=== PATIENT | male | born 1950 | race Asian ===

== ENCOUNTER → 2024-05-23 | Outpatient (CLI) | payer OTHER, SELFPAY ==
[2024-05-23 09:28] LABS: Collection Type, Urine Clean Catch
[2024-05-23 10:11] LABS: Basophils % (Auto) 1 % (0-2.5); Eosinophils # (Auto) 0.2 Thou/mm3 (0.0-0.5); Eosinophils % (Auto) 3 % (0-10); Hemoglobin 12.7 g/dL (13.5-16.0); Immature Granulocytes % (Auto) 0 % (0-0); Immature Granulocytes Auto 0.01 Thou/mm3 (0.00-0.00); Lymphocytes # (Auto) 2.4 Thou/mm3 (1.0-4.8); Lymphocytes % (Auto) 40 % (10-50); Mean Corpuscular Hemoglobin 20.9 pg (25.0-35.0); Mean Corpuscular Volume 67 fL (80-100); Monocytes # (Auto) 0.4 Thou/mm3 (0.0-0.8); Monocytes % (Auto) 7 % (0-12); Neutrophils # (Auto) 3.1 Thou/mm3 (1.8-7.7); Neutrophils % (Auto) 50 % (37-80); Nucleated Red Blood Cell % 0 /100 WBC (0); Platelet Count 276 Thou/mm3 (140-440); RDW Standard Deviation 37.5 fL (35.1-43.9); Red Blood Count 6.08 Miln/mm3 (4.50-5.90); White Blood Count 6.2 Thou/mm3 (3.8-10.6)
[2024-05-23 10:24] LABS: Bilirubin,Urine Negative (Negative); Blood,Urine Negative (Negative); Clarity,Urine Clear (Clear/Hazy); Color,Urine Lt-Yellow (Lt Yel-Yel); Glucose, Urine Negative (Negative); Ketones,Urine Negative (Negative); Leukocyte Esterase,Urine Negative (Negative); Nitrite,Urine Negative (Negative); Protein,Urine Negative (Neg - Trace); RBC,Urine 1 /hpf (0-3); Specific Gravity,Urine 1.016 (1.001-1.035); Squamous Epithelial Cell,Urine < 1 /hpf (0-5); Urobilinogen,Urine Negative mg/dL (0.0-1.0); WBC,Urine 1 /hpf (0-5)
[2024-05-23 10:29] LABS: Alanine Aminotransferase 20 U/L (10-49); Albumin, Serum 4.2 gm/dL (3.4-4.8); Albumin/Globulin Ratio 1.3 (1.2-2.2); Alkaline Phosphatase 78 U/L (46-116); Anion Gap 7 (7-16); Aspartate Amino Transferase 22 U/L (0-34); BUN/Creatinine Ratio 14 Ratio (12-20); Bilirubin,Total 0.8 mg/dL (0.3-1.2); Blood Urea Nitrogen 14 mg/dL (9-23); Calcium 9.5 mg/dL (8.3-10.6); Calcium (Corrected) 9.5 mg/dL (8.5-10.1); Carbon Dioxide 28.9 mMol/L (20.0-31.0); Cardiac Risk Estimate 4.6 RATIO (4.0-6.7); Chloride 108 mMol/L (98-107); Cholesterol 254 mg/dL (132-200); Globulin 3.2 gm/dL (2.3-3.5); Glucose 104 mg/dL (74-106); HDL Cholesterol 55 mg/dL (40-60); LDL Cholesterol,Calculated 165 mg/dL (0-130); Osmolality,Calculated 287 (275-295); Potassium 4.3 mMol/L (3.4-5.1); Sodium 144 mMol/L (136-145); Thyroid Stimulating Hormone 0.64 uIU/mL (0.55-4.78); Total Protein 7.4 gm/dL (5.7-8.2); Triglycerides 168 mg/dL (30-150); eGFR > 60 See Note
[2024-05-23 12:26] LABS: Path Review Blood Smear Sent to Pathologist
== END | disposition home or self-care (01) ==
LOC: COPL 09:08
PROVIDERS: PCP Family Medicine; Referring Provider Family Medicine; Visit Provider Family Medicine
DX: Z00.00 Encounter for general adult medical examination without abnormal findings (principal); E78.2 Mixed hyperlipidemia; E04.1 Nontoxic single thyroid nodule; E79.0 Hyperuricemia without signs of inflammatory arthritis and tophaceous disease
CPT/HCPCS: 36415; 80053; 80061; 81001; 84443; 85025

== ENCOUNTER 2024-07-01 09:55 | Day surgery (SDC) | payer OTHER, SELFPAY ==
[2024-06-26 06:59] VITALS: BMI 28.4
--- NOTE | 2024-06-26 07:00 | EKG_ITS ---
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
[2024-06-26 07:40] LABS: Collection Type, Urine Clean Catch
[2024-06-26 08:29] LABS: Alanine Aminotransferase 21 U/L (10-49); Albumin, Serum 4.1 gm/dL (3.4-4.8); Albumin/Globulin Ratio 1.2 (1.2-2.2); Alkaline Phosphatase 91 U/L (46-116); Anion Gap 7 (7-16); Aspartate Amino Transferase 23 U/L (0-34); BUN/Creatinine Ratio 16 Ratio (12-20); Bilirubin,Total 0.6 mg/dL (0.3-1.2); Blood Urea Nitrogen 16 mg/dL (9-23); Carbon Dioxide 28.6 mMol/L (20.0-31.0); Chloride 109 mMol/L (98-107); Estimated Creatinine Clearance 59.2 mL/min (>60); Globulin 3.4 gm/dL (2.3-3.5); Glucose 129 mg/dL (74-106); Osmolality,Calculated 291 (275-295); Potassium 4.2 mMol/L (3.4-5.1); Sodium 145 mMol/L (136-145); Total Protein 7.5 gm/dL (5.7-8.2); eGFR > 60 See Note
[2024-06-26 08:34] LABS: Basophils % (Auto) 0 % (0-2.5); Eosinophils # (Auto) 0.1 Thou/mm3 (0.0-0.5); Eosinophils % (Auto) 2 % (0-10); Hematocrit 41.1 % (41.0-53.0); Hemoglobin 12.8 g/dL (13.5-16.0); Immature Granulocytes % (Auto) 0 % (0-0); Immature Granulocytes Auto 0.01 Thou/mm3 (0.00-0.00); Lymphocytes # (Auto) 2.2 Thou/mm3 (1.0-4.8); Lymphocytes % (Auto) 32 % (10-50); Mean Corpuscular HGB Conc 31.1 g/dl (31.0-37.0); Mean Corpuscular Hemoglobin 20.7 pg (25.0-35.0); Mean Corpuscular Volume 67 fL (80-100); Monocytes # (Auto) 0.5 Thou/mm3 (0.0-0.8); Monocytes % (Auto) 8 % (0-12); Neutrophils # (Auto) 3.9 Thou/mm3 (1.8-7.7); Neutrophils % (Auto) 58 % (37-80); Nucleated Red Blood Cell % 0 /100 WBC (0); Platelet Count 280 Thou/mm3 (140-440); RDW Standard Deviation 36.9 fL (35.1-43.9); Red Blood Count 6.18 Miln/mm3 (4.50-5.90); White Blood Count 6.9 Thou/mm3 (3.8-10.6)
[2024-06-26 08:36] LABS: Bilirubin,Urine Negative (Negative); Blood,Urine Negative (Negative); Clarity,Urine Clear (Clear/Hazy); Color,Urine Lt-Yellow (Lt Yel-Yel); Glucose, Urine Negative (Negative); Ketones,Urine Negative (Negative); Leukocyte Esterase,Urine Negative (Negative); Nitrite,Urine Negative (Negative); Protein,Urine Negative (Neg - Trace); RBC,Urine 2 /hpf (0-3); Specific Gravity,Urine 1.018 (1.001-1.035); Squamous Epithelial Cell,Urine < 1 /hpf (0-5); Urobilinogen,Urine Negative mg/dL (0.0-1.0); WBC,Urine < 1 /hpf (0-5)
--- NOTE | 2024-06-30 14:14 | SUR.PREOP ---
Voice message left for pt to come in at 1030 tomorrow.
--- NOTE | 2024-07-01 07:49 | ESHP_ITS ---
RE: LESLI BROWN : 1950 DATE OF ADMISSION: 06/30/2024 HISTORY OF PRESENT ILLNESS: The patient is a 74-year-old male with an elevated prostatic specific antigen of 8.75. He has nocturia three to four times. He has fair urinary stream. There is no history of gross hematuria or no history of urinary burning. 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 SOCIAL HISTORY: The patient has one child. ALLERGIES: NONE KNOWN. PAST MEDICAL HISTORY: There is no history of diabetes mellitus. No history of hypertension. HOME MEDICATIONS: The patient takes, 1. Tamsulosin 0.4 mg every day. 2. Allopurinol. 3. Finasteride 5 mg. PHYSICAL EXAMINATION: HEENT: Normal. Neck: Supple. Lungs: Clear. Cardiovascular: Heart sounds are normal. Abdomen: Soft without any organomegaly. No guarding. No rigidity. Extremities: Normal. Genitourinary: Phallus is normal. Testes are down in the scrotum. Rectal: Moderately enlarged prostate with small left prostatic lobe nodule and firmness. IMPRESSION: 1. Prostatism. 2. Prostatic obstruction. 3. Elevated PSA of 8.75. PLAN: Cystoscopy and transrectal prostatic ultrasound with ultrasound-guided prostatic needle biopsy. Planned procedure, risks and complications have been discussed with the patient. The patient has understood them and agreed to proceed. Thank you very much for your kind referral and for allowing me to see this patient. cc: Sekou Horton MD DT: 17:18:36 TT: 18:12:00 Ref: [id number] - TID: [id number]
[2024-07-01 10:33] VITALS: BP 137/73; PULSE 63; RESP 16; TEMP 36.9; O2SAT 96; BMI 28.7
[2024-07-01 13:34] VITALS: BP 146/84; PULSE 73; RESP 16; TEMP 36.3; O2SAT 97
[2024-07-01 13:39] VITALS: BP 138/81; PULSE 71; RESP 18; O2SAT 95
[2024-07-01 13:44] VITALS: BP 119/70; PULSE 69; RESP 18; O2SAT 96
[2024-07-01 13:49] VITALS: BP 147/79; PULSE 77; RESP 19; O2SAT 95
[2024-07-01 14:04] VITALS: BP 122/68; PULSE 69; RESP 17; TEMP 36.4; O2SAT 95
--- NOTE | 2024-07-01 17:55 | ESOP_ITS ---
RE: LESLI BROWN : 1950 DATE OF OPERATION: 07/01/2024 PREOPERATIVE DIAGNOSES: Prostatism, prostatic obstruction, and elevated PSA of 8.75. POSTOPERATIVE DIAGNOSES: Prostatism, prostatic obstruction, and elevated PSA of 8.75. PROCEDURES PERFORMED: Cystoscopy, urethral dilatation, and transrectal prostatic ultrasound with ultrasound-guided prostatic needle biopsy. ANESTHESIA: Monitored anesthesia by Dr. Whittington. INDICATION: The patient is a 74-year-old gentleman with elevated PSA of 8.75. He has nocturia 3-4 times. Rectally, he has a moderately enlarged prostate with mild firmness in the left prostatic lobe. He is now scheduled to have cystoscopy and transrectal prostatic ultrasound with ultrasound-guided prostatic needle biopsy. Planned procedure, risks, and complications have been discussed with the patient. The patient understood them and agreed to proceed. DESCRIPTION OF PROCEDURE: After the patient was brought to the operating table, under adequate monitored anesthesia by Dr. Whittington, patient was placed in dorsal lithotomy position. Parts were prepped and draped in the usual fashion. Cystoscopy was then carried out, which revealed adequate urethral meatus, normal-appearing urethra, and moderately enlarged prostate, which was bilobed. Residual urine is 2 ounces, yellow and clear. There are no intravesical stones or tumors. Ureteral orifices are found to be normal in position and appearance. Scope was withdrawn. Urethra was dilated. The patient was then turned in left lateral position. Transrectal prostatic ultrasound was carried out. Biopsies were obtained from both lobes using biopsy needle in all about 10-11. Biopsies were obtained from the prostate. Prostatic volume was measured at 19.4 mL. The patient tolerated the entire procedure well and left the room in good condition. PLAN: We will await the biopsy report. Thank you very much for your kind referral and for allowing me to participate in the management of this patient. cc: Sekou Horton MD DT: 13:41:04 TT: 17:54:00 Ref: [id number] - TID: [id number]
== END 2024-07-01 14:14 | disposition home or self-care (01) ==
PROVIDERS: Anesthesiology; PCP Family Medicine; Referring Provider Surgery; Visit Provider Surgery
PROC: (CPT 55700; principal; 2024-07-01 12:30)
PROC: 0TJB8ZZ Inspection of Bladder, Via Natural or Artificial Opening Endoscopic (ICD-10-PCS; CPT 52000; 2024-07-01 12:30)
DX: C61 Malignant neoplasm of prostate (principal); N40.1 Benign prostatic hyperplasia with lower urinary tract symptoms; R97.20 Elevated prostate specific antigen [PSA]; Z01.810 Encounter for preprocedural cardiovascular examination
CPT/HCPCS: 52281; 55700; 36415; 76942; 80053; 81001; 85025; 87086; 93005; A4217; A4649; J0694; J2250; J2704; J3010

== ENCOUNTER → 2024-08-25 | Outpatient (CLI) | payer OTHER, SELFPAY | END | disposition home or self-care (01) | PROVIDERS: PCP Family Medicine; Referring Provider Family Medicine; Visit Provider Family Medicine | DX: E78.2 Mixed hyperlipidemia (principal); C61 Malignant neoplasm of prostate; D64.9 Anemia, unspecified; E79.0 Hyperuricemia without signs of inflammatory arthritis and tophaceous disease; R73.01 Impaired fasting glucose | CPT/HCPCS: 80053; 80061; 83036; 84550; 85025 ==

== ENCOUNTER → 2024-08-26 | Outpatient (CLI) | payer OTHER, SELFPAY ==
[2024-08-26 08:52] LABS: Basophils % (Auto) 1 % (0-2.5); Eosinophils # (Auto) 0.2 Thou/mm3 (0.0-0.5); Eosinophils % (Auto) 3 % (0-10); Hematocrit 38.7 % (41.0-53.0); Hemoglobin 12.5 g/dL (13.5-16.0); Immature Granulocytes % (Auto) 0 % (0-0); Immature Granulocytes Auto 0.01 Thou/mm3 (0.00-0.00); Lymphocytes # (Auto) 2.9 Thou/mm3 (1.0-4.8); Lymphocytes % (Auto) 43 % (10-50); Mean Corpuscular HGB Conc 32.3 g/dl (31.0-37.0); Mean Corpuscular Hemoglobin 21.3 pg (25.0-35.0); Mean Corpuscular Volume 66 fL (80-100); Monocytes # (Auto) 0.5 Thou/mm3 (0.0-0.8); Monocytes % (Auto) 7 % (0-12); Neutrophils # (Auto) 3.1 Thou/mm3 (1.8-7.7); Neutrophils % (Auto) 46 % (37-80); Nucleated Red Blood Cell % 0 /100 WBC (0); Platelet Count 269 Thou/mm3 (140-440); RDW Standard Deviation 37.2 fL (35.1-43.9); Red Blood Count 5.88 Miln/mm3 (4.50-5.90); White Blood Count 6.7 Thou/mm3 (3.8-10.6)
[2024-08-26 09:38] LABS: Glucose Estimated Average 108 mg/dL (80-131); Hemoglobin A1C 5.4 % Hgb (4.8-6.0)
[2024-08-26 09:52] LABS: Alanine Aminotransferase 14 U/L (10-49); Albumin, Serum 4.2 gm/dL (3.4-4.8); Albumin/Globulin Ratio 1.4 (1.2-2.2); Alkaline Phosphatase 75 U/L (46-116); Anion Gap 12 (7-16); Aspartate Amino Transferase 19 U/L (0-34); BUN/Creatinine Ratio 14 Ratio (12-20); Blood Urea Nitrogen 14 mg/dL (9-23); Calcium 8.6 mg/dL (8.3-10.6); Calcium (Corrected) 8.6 mg/dL (8.5-10.1); Carbon Dioxide 27.3 mMol/L (20.0-31.0); Cardiac Risk Estimate 4.4 RATIO (4.0-6.7); Chloride 109 mMol/L (98-107); Cholesterol 219 mg/dL (132-200); Glucose 103 mg/dL (74-106); HDL Cholesterol 50 mg/dL (40-60); LDL Cholesterol,Calculated 143 mg/dL (0-130); Osmolality,Calculated 294 (275-295); Sodium 148 mMol/L (136-145); Total Protein 7.2 gm/dL (5.7-8.2); Triglycerides 130 mg/dL (30-150); Uric Acid 7.7 mg/dL (3.7-9.2); eGFR > 60 See Note
== END | disposition home or self-care (01) ==
LOC: COPL 07:23
PROVIDERS: PCP Family Medicine; Referring Provider Family Medicine; Visit Provider Family Medicine
DX: C61 Malignant neoplasm of prostate (principal); D64.9 Anemia, unspecified; E78.2 Mixed hyperlipidemia; E79.0 Hyperuricemia without signs of inflammatory arthritis and tophaceous disease; R73.01 Impaired fasting glucose
CPT/HCPCS: 36415; 80053; 80061; 83036; 84550; 85025

== ENCOUNTER → 2024-10-14 | Outpatient (CLI) | payer OTHER, SELFPAY ==
[2024-10-14 09:33] LABS: Collection Type, Urine Clean Catch; Squamous Epithelial Cell,Urine 0 /hpf (0-5)
[2024-10-14 10:06] LABS: Basophils # (Auto) 0.0 Thou/mm3 (0.0-0.2); Basophils % (Auto) 1 % (0-2.5); Eosinophils # (Auto) 0.2 Thou/mm3 (0.0-0.5); Eosinophils % (Auto) 3 % (0-10); Hematocrit 39.0 % (41.0-53.0); Hemoglobin 12.3 g/dL (13.5-16.0); Immature Granulocytes Auto 0.01 Thou/mm3 (0.00-0.00); Lymphocytes # (Auto) 2.5 Thou/mm3 (1.0-4.8); Lymphocytes % (Auto) 39 % (10-50); Mean Corpuscular HGB Conc 31.5 g/dl (31.0-37.0); Mean Corpuscular Hemoglobin 21.2 pg (25.0-35.0); Mean Corpuscular Volume 67 fL (80-100); Monocytes # (Auto) 0.4 Thou/mm3 (0.0-0.8); Monocytes % (Auto) 7 % (0-12); Neutrophils # (Auto) 3.2 Thou/mm3 (1.8-7.7); Neutrophils % (Auto) 50 % (37-80); Nucleated Red Blood Cell # 0.00 Thou/mm3 (0.00-0.00); Nucleated Red Blood Cell % 0 /100 WBC (0); Platelet Count 257 Thou/mm3 (140-440); RDW Standard Deviation 37.0 fL (35.1-43.9); Red Blood Count 5.81 Miln/mm3 (4.50-5.90); White Blood Count 6.4 Thou/mm3 (3.8-10.6)
[2024-10-14 10:14] LABS: Bilirubin,Urine Negative (Negative); Blood,Urine Negative (Negative); Clarity,Urine Clear (Clear/Hazy); Color,Urine Yellow (Lt Yel-Yel); Culture Indicated,Urine Not Indicated; Glucose, Urine Negative (Negative); Ketones,Urine Negative (Negative); Leukocyte Esterase,Urine Negative (Negative); Nitrite,Urine Negative (Negative); PH,Urine 6.0 (5.0-7.0); Protein,Urine Negative (Neg - Trace); RBC,Urine 2 /hpf (0-3); Specific Gravity,Urine 1.024 (1.001-1.035); Urobilinogen,Urine Negative mg/dL (0.0-1.0); WBC,Urine < 1 /hpf (0-5)
[2024-10-14 10:26] LABS: Alanine Aminotransferase 18 U/L (10-49); Albumin, Serum 4.2 gm/dL (3.4-4.8); Albumin/Globulin Ratio 1.3 (1.2-2.2); Alkaline Phosphatase 65 U/L (46-116); Anion Gap 10 (7-16); Aspartate Amino Transferase 22 U/L (0-34); BUN/Creatinine Ratio 10 Ratio (12-20); Bilirubin,Total 0.9 mg/dL (0.3-1.2); Blood Urea Nitrogen 10 mg/dL (9-23); Calcium 9.1 mg/dL (8.3-10.6); Calcium (Corrected) 9.1 mg/dL (8.5-10.1); Carbon Dioxide 28.4 mMol/L (20.0-31.0); Cardiac Risk Estimate 3.1 RATIO (4.0-6.7); Chloride 108 mMol/L (98-107); Cholesterol 147 mg/dL (132-200); Creatinine (Component) 1.0 mg/dL (0.6-1.3); Globulin 3.2 gm/dL (2.3-3.5); Glucose 105 mg/dL (74-106); HDL Cholesterol 48 mg/dL (40-60); LDL Cholesterol,Calculated 71 mg/dL (0-130); Osmolality,Calculated 289 (275-295); Potassium 4.3 mMol/L (3.4-5.1); Sodium 146 mMol/L (136-145); Thyroid Stimulating Hormone 0.19 uIU/mL (0.55-4.78); Total Protein 7.4 gm/dL (5.7-8.2); Triglycerides 138 mg/dL (30-150); eGFR > 60 See Note
[2024-10-14 10:29] LABS: Prostate Specific Antigen 2.09 ng/mL (0-4.00)
== END | disposition home or self-care (01) ==
LOC: COPL 08:42
PROVIDERS: PCP Family Medicine; Referring Provider Family Medicine; Visit Provider Family Medicine
DX: Z00.00 Encounter for general adult medical examination without abnormal findings (principal); E78.2 Mixed hyperlipidemia; R97.20 Elevated prostate specific antigen [PSA]; E04.1 Nontoxic single thyroid nodule
CPT/HCPCS: 36415; 80053; 80061; 81001; 84153; 84443; 85025; 87040

== ENCOUNTER → 2024-11-10 | Outpatient (CLI) | payer OTHER, SELFPAY ==
[2024-11-10 09:20] LABS: OBS Performed By LAB; OBS QC OK? Yes
[2024-11-10 13:44] LABS: OBS Developer Lot # 551749; Occult Blood, Stool Negative (Negative); Occult Blood, Stool #2 Negative (Negative); Occult Blood, Stool #3 Negative (Negative)
== END | disposition home or self-care (01) ==
LOC: SLDO 08:42
PROVIDERS: Referring Provider Family Medicine; Visit Provider Family Medicine
DX: Z00.00 Encounter for general adult medical examination without abnormal findings (principal); E78.2 Mixed hyperlipidemia; R97.20 Elevated prostate specific antigen [PSA]; E04.1 Nontoxic single thyroid nodule
CPT/HCPCS: 82270

== ENCOUNTER → 2024-12-22 | Outpatient (CLI) | payer OTHER, SELFPAY ==
[2024-12-22 10:35] LABS: Free T4 (Free Thyroxine) 1.07 ng/dL (0.89-1.76); Thyroid Stimulating Hormone 0.57 uIU/mL (0.55-4.78); Uric Acid 8.1 mg/dL (3.7-9.2)
[2024-12-22 11:24] LABS: Glucose Estimated Average 114 mg/dL (80-131); Hemoglobin A1C 5.6 % Hgb (4.8-6.0)
[2024-12-25 06:29] LABS: T3,Total* 96 ng/dL (76-181)
== END | disposition home or self-care (01) ==
LOC: COPL 08:48
PROVIDERS: PCP Family Medicine; Referring Provider Family Medicine; Visit Provider Surgery
DX: E79.0 Hyperuricemia without signs of inflammatory arthritis and tophaceous disease (principal); R94.6 Abnormal results of thyroid function studies; E04.1 Nontoxic single thyroid nodule; R73.01 Impaired fasting glucose; C61 Malignant neoplasm of prostate
CPT/HCPCS: 36415; 83036; 84439; 84443; 84480; 84550

== ENCOUNTER → 2025-03-10 | Outpatient (CLI) | payer OTHER, SELFPAY ==
[2025-03-10 10:01] LABS: Prostate Specific Antigen 2.21 ng/mL (0-4.00)
== END | disposition home or self-care (01) ==
LOC: COPL 08:44
PROVIDERS: PCP Family Medicine; Referring Provider Surgery; Visit Provider Surgery
DX: C61 Malignant neoplasm of prostate (principal)
CPT/HCPCS: 36415; 84153